=== PATIENT | male | born 1990 | race Caucasian/White ===

== ENCOUNTER 2019-02-11 15:16 | Emergency (ER) | payer SELFPAY ==
--- NOTE | 2019-02-11 15:21 | ED Physician Documentation ---
General Adult - HISTORIAN Historian: patient - HPI Stated Complaint: cough congestion and sinus drainage x 45 days Chief Complaint: General Adult Onset: days ago (45) Timing: still present Severity: mild Further Comments: yes (he states over a month and a half ago he started with cough, congestion, and sinus pain. No fever recently he has had chills. He has not had any OTC meds in a few days due to he just didnt have any. No rash . No known sick contacts) - ROS CONST: fever, recent illness EYES/ENT: sore throat, nasal drainage, nasal congestion CVS/RESP: cough GI/: vomiting, nausea NEURO/PSYCH: headache - PAST HX Past History: none Immunizations: UTD Allergies/Adverse Reactions: Allergies Allergy/AdvReac Type Severity Reaction Status Date / Time No Known Allergies Allergy Verified 02/11/19 15:26 Home Medications: Ambulatory Orders Medication Instructions Recorded NK 02/11/19 - SOCIAL HX Smoking History: non-smoker Alcohol Use: none Drug Use: none - FAMILY HX Family History: No - REVIEWED ASSESSMENTS Nursing Assessment Reviewed: Yes Vitals Reviewed: Yes ED Results Lab/Radiology - Radiology Radiology Impressions: Examination: PA and lateral chest. History: Evaluate lung munoz. Comparison exam: None provided. Findings: PA and lateral views of the chest demonstrates a normal cardiac and mediastinal silhouette. No focal infiltrate. No blunting of the costophrenic margins. Osseous structures are appropriate for age. Impression: No acute pulmonary process. Electronically signed on Feb 11, 2019 3:58:45 PM CDT by: William Chang General Adult Physical Exam - PHYSICAL EXAM GENERAL APPEARANCE: no distress EENT: eye inspection normal, ENT inspection normal, pharynx normal, no signs of dehydration, TAM, TM's nml, other (no sinus tenderness ) NECK: normal inspection RESPIRATORY: no resp distress, chest non-tender, breath sounds normal CVS: reg rate & rhythm, heart sounds normal ABDOMEN: soft, normal bowel sounds, no distension, non-tender BACK: normal inspection, no CVA tenderness SKIN: warm/dry, normal color EXTREMITIES: non-tender, normal range of motion, no evidence of injury NEURO: oriented X3 Discharge Clincal Impression: Allergic rhinitis Qualifiers: Allergic rhinitis trigger: unspecified Allergic rhinitis seasonality: seasonal Qualified Code(s): J30.2 - Other seasonal allergic rhinitis Comments: 1. Zyrtec 10 mg take 1 by mouth daily 2. Flonase 1 spray each nostril daily 3. Sinus rinse 4. OTC meds for treatment relief 5. Follow up with PCP in 2-4 days 6. Return to ER for any increasing concerns Condition: Stable Decision to Admit: NO Date of Decison to Admit: 02/11/19 Decision Time: 16:18
[2019-02-11 15:28] VITALS: BP 115/72
[2019-02-11 15:42] LABS: BASOPHILS % 0.5 % (0.0-1.5); NEUTROPHILS # 5.2 # k/uL (1.4-7.7)
[2019-02-11 15:54] LABS: eGFR (Non-African) > 60
--- NOTE | 2019-02-11 18:51 | Diagnostic Imaging Report ---
CALIN DUGGAN [facility] [address] [facility] [address] [place], [place]. [address] Report Submission Date: Feb 11, 2019 3:58:45 PM CDT Patient Study Name: CHRISTIANO JIANG Date: Feb 11, 2019 3:33:56 PM CDT Modality Type: DX Gender: M Description: CHEST 2VIEW : 89 Institution: [facility] Physician: CALIN DUGGAN Examination: PA and lateral chest. History: Evaluate lung munoz. Comparison exam: None provided. Findings: PA and lateral views of the chest demonstrates a normal cardiac and mediastinal silhouette. No focal infiltrate. No blunting of the costophrenic margins. Osseous structures are appropriate for age. Impression: No acute pulmonary process. Electronically signed on Feb 11, 2019 3:58:45 PM CDT by: William CHENG
== END 2019-02-11 16:30 ==
LOC: ED 15:16
DX: J30.2 Other seasonal allergic rhinitis (principal)
CPT/HCPCS: 71046; 80053; 85025; 87070; 87400; 87880; 99284

== ENCOUNTER 2019-04-19 16:54 | Emergency (ER) | payer OTHER ==
--- NOTE | 2019-04-19 17:14 | ED Physician Documentation ---
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 Pt has had nausea, but no vomiting. He reports mild constipation, but otherwise normal bm's.) - ROS CONST: no problems EYES/ENT: none CVS/RESP: none GI/: abdominal pain, nausea MS/SKIN/LYMPH: none - PAST HX Past History: other (peptic ulcer; possible ulcerative colitis) - SOCIAL HX Smoking History: cigarettes - FAMILY HX Family History: No - VITAL SIGNS Vital Signs: Vital Signs Temp Pulse Resp BP Pulse Ox 115/72 02/11/19 16:30 - REVIEWED ASSESSMENTS Nursing Assessment Reviewed: Yes Vitals Reviewed: Yes <Shreyas Crane - Last Filed: 04/19/19 17:54> - VITAL SIGNS Vital Signs: Vital Signs Temp Pulse Resp BP Pulse Ox 98.2 F 105 H 15 134/84 98 04/19/19 16:54 04/19/19 16:54 04/19/19 16:54 04/19/19 16:54 04/19/19 16:54 <Farhana Gore - Last Filed: 04/19/19 18:18> - PAST HX Allergies/Adverse Reactions: Allergies Allergy/AdvReac Type Severity Reaction Status Date / Time No Known Allergies Allergy Verified 04/19/19 17:08 Home Medications: Ambulatory Orders Medication Instructions Recorded Ondansetron HCl Rapdis [Zofran Odt] 4 mg PO Q6 PRN #10 tab 04/19/19 Progress - Progress Progress: NS 1 L IVF Zofran 4 mg IV abd x-ray: neg Care transferred to Farhana Gore at 1800. <Shreyas Crane - Last Filed: 04/19/19 17:54> - Progress Progress: 18:05 patient sitting up to the side of the bed; playing on phone; states he is feeling better; needing work excuse <Farhana Gore - Last Filed: 04/19/19 18:18> ED Results Lab/Radiology - Lab Results Lab Results: Lab Results 04/19/19 04/19/19 04/19/19 17:25 17:25 17:25 WBC 9.70 K/ul K/ul (4.00-12.00) RBC 4.60 M/ul M/ul (3.90-5.20) Hgb 14.8 g/dL g/dL (12.0-18.0) Hct 43.1 % % (37.0-53.0) MCV 94.0 fl fl (80.0-100.0) MCH 32.2 pg pg (28.0-34.0) MCHC 34.3 g/dL g/dL (30.0-36.0) RDW 10.7 % L % (11.3-14.3) Plt Count 205 K/mm3 K/mm3 (130-400) Neut % (Auto) 73.4 % % (39.0-79.0) Lymph % (Auto) 18.5 % % (16.0-50.0) Sharp % (Auto) 5.6 % % (0.0-11.0) Eos % (Auto) 2.1 % % (0.0-6.8) Baso % (Auto) 0.4 % % (0.0-1.5) Neut # (Auto) 7.2 # k/uL # k/uL (1.4-7.7) Lymph # (Auto) 1.8 # k/uL # k/uL (0.6-4.0) Sharp # (Auto) 0.6 # k/uL # k/uL (0.0-0.9) Eos # (Auto) 0.2 # k/uL # k/uL (0.0-0.6) Baso # (Auto) 0.0 # k/uL # k/uL (0.0-0.5) Sodium 143 mmol/L mmol/L (137-145) Potassium 3.7 mmol/L mmol/L (3.5-5.1) Chloride 103 mmol/L mmol/L (98-107) Carbon Dioxide 28 mmol/L mmol/L (22-30) Anion Gap 15.7 BUN 15 mg/dL mg/dL (9-20) Creatinine 1.07 mg/dL mg/dL (0.66-1.25) Estimated Creat Clear 135 Est GFR ( Amer) > 60 (60 - ) Est GFR (Non-Af Amer) > 60 (60 - ) Glucose 94 mg/dL mg/dL (74-106) Calcium 9.7 mg/dL mg/dL (8.4-10.2) Total Bilirubin 0.3 mg/dL mg/dL (0.2-1.3) AST 36 U/L U/L (15-46) ALT 44 U/L U/L (0-50) Alkaline Phosphatase 67 U/L U/L (38-126) Total Protein 8.5 g/dL H g/dL (6.3-8.2) Albumin 4.8 g/dL g/dL (3.5-5.0) Lipase 43 U/L U/L (23-300) - Radiology Radiology Impressions: KUB Clinical history: Abdominal pain Technique ap supine radiograph of the abdomen Findings: The bowel gas pattern is nonspecific. No renal calcifications are seen. The bones are within normal limits. No abdominal masses identified. Impression: Negative KUB :4 - Orders Orders: ED Orders Category Date Time Status Place IV Lock 1T Care 04/19/19 17:16 Active ABDOMEN 1VIEW [RAD] Stat Exams 04/19/19 Completed CBC/PLATELET/DIFF Routine Lab 04/19/19 17:25 Completed CMP [CMP] Routine Lab 04/19/19 17:25 Completed LIPASE Stat Lab 04/19/19 17:25 Completed UA [URINALYSIS] Routine Lab 04/19/19 17:25 Received 0.9 % Sodium Chloride [Normal Saline] 1,000 ml Med 04/19/19 17:16 Active IV Q1H Ondansetron HCl/Pf [Zofran] Med 04/19/19 17:16 Discontinued 4 mg IVP NOW ONE <Farhana Gore - Last Filed: 04/19/19 18:18> General Adult Physical Exam - PHYSICAL EXAM GENERAL APPEARANCE: moderate distress EENT: pharynx normal NECK: normal inspection, supple RESPIRATORY: no resp distress, chest non-tender, breath sounds normal CVS: reg rate & rhythm, heart sounds normal ABDOMEN: soft, tenderness (LLQ, guarding), decreased BS BACK: normal inspection, CVA tenderness (L) (mild) SKIN: warm/dry, normal color EXTREMITIES: non-tender, normal range of motion, no evidence of injury, no edema NEURO: oriented X3, motor nml, sensation nml <Shreyas Crane - Last Filed: 04/19/19 17:54> Discharge <Shreyas Crane - Last Filed: 04/19/19 17:54> Decision to Admit: NO Decision Time: 18:18 <Farhana Gore - Last Filed: 04/19/19 18:18> Clincal Impression: abd pain, Nausea Prescriptions: Ondansetron HCl Rapdis [Zofran Odt] 4 mg PO Q6 PRN #10 tab PRN Reason: nausea and vomiting Referrals: Primary Doctor,No [Primary Care Provider] - Additional Instructions: Take Zofran 4 mg by mouth every 6 hours as needed for nausea Clear liquids for 24 hours and advance diet as tolerated (No spicy, greasy, or fatty foods) Follow up with PCP this week for re-evaluation Condition: Good Disposition: 01 HOME, SELF-CARE
[2019-04-19] MEDS ORDERED: 0.9 % SODIUM CHLORIDE 1,000 ML IV ONE (17:16)
[2019-04-19] MEDS ORDERED: ONDANSETRON HCL/PF 4 MG/ 2ML VIAL IVP ONE (17:16)
[2019-04-19 17:30] LABS: NEUTROPHILS # 7.2 # k/uL (1.4-7.7)
[2019-04-19 17:46] LABS: eGFR (Non-African) > 60
--- NOTE | 2019-04-19 17:54 | Diagnostic Imaging Report ---
PATIENT MR#: [id number] PATIENT PATIENT NAME: CHRISTIANO JIANG DATE OF : 1990 REFERRING PHYSICIAN: Shreyas Crane EXAM DATE: 04/19/2019 ACCESSION NUMBER: [id number] EXAM DESCRIPTION: ABDOMEN 1VIEW KUB Clinical history: Abdominal pain Technique ap supine radiograph of the abdomen Findings: The bowel gas pattern is nonspecific. No renal calcifications are seen. The bones are withi n normal limits. No abdominal masses identified. Impression: Negative KUB Read by: Dr. John Neal Transcribed by: Transcribed Date: Electronically signed by: Dr. John Neal Date signed: 04/19/2019 5:53:30 PM
[2019-04-19 17:56] LABS: BASOPHILS % 0.4 % (0.0-1.5)
[2019-04-19 18:22] VITALS: BP 116/72
[2019-04-19 19:03] LABS: APPEARANCE,URINE CLEAR (CLEAR); COLOR,URINE YELLOW (YELLOW); OCCULT BLOOD,URINE NEGATIVE (NEGATIVE); UROBILINOGEN URINE 0.2 Eu (0.2-1.0)
== END 2019-04-19 18:20 | disposition home or self-care (01) ==
LOC: ED 16:54
DX: R10.32 Left lower quadrant pain (principal); R11.0 Nausea
CPT/HCPCS: 74018; 80053; 81002; 83690; 85025; 96361; 96374; 99284; J2405; J7030; S1016